=== PATIENT | female | born 1995 | race Hispanic/Latino ===

== ENCOUNTER 2023-06-03 11:36 | Emergency (ER) | payer SELFPAY ==
[2023-06-03 11:48] VITALS: BP 131/90
[2023-06-03 12:01] VITALS: BP 106/63
[2023-06-03 12:15] VITALS: BP 125/78
[2023-06-03 12:30] VITALS: BP 118/68
[2023-06-03 14:30] VITALS: BP 118/68
== END 2023-06-03 14:32 | disposition home or self-care (01) | DRG 607 ==
LOC: ED 11:36
DX: D24.1 Benign neoplasm of right breast (principal)